=== PATIENT | female | born 1960 | race Caucasian/White ===

== ENCOUNTER → 2023-09-05 06:28 | Day surgery (SDC) | payer OTHER, SELFPAY | LOC: GI 06:28 | PROVIDERS: ATTENDING PHYSICIAN Specialist | DX: R12 Heartburn (principal); K31.7 Polyp of stomach and duodenum; D13.2 Benign neoplasm of duodenum; K22.89 Other specified disease of esophagus | CPT/HCPCS: 43251; 43239; 88305 ==

== ENCOUNTER → 2023-09-13 06:32 | Day surgery (SDC) | payer OTHER, SELFPAY | LOC: GI 06:32 | PROVIDERS: ATTENDING PHYSICIAN Specialist | DX: D13.2 Benign neoplasm of duodenum (principal); K92.1 Melena; Z86.010 Personal history of colon polyps | CPT/HCPCS: 43251; 88305 ==

== ENCOUNTER → 2024-01-03 10:32 | Outpatient (REF) | payer OTHER, SELFPAY | LOC: WDC 10:32 | PROVIDERS: ATTENDING PHYSICIAN Nurse Practitioner Family; FAMILY PHYSICIAN Family Medicine | DX: Z12.31 Encounter for screening mammogram for malignant neoplasm of breast (principal) | CPT/HCPCS: 77063; 77067 ==

== ENCOUNTER 2024-03-13 06:17 | Day surgery (SDC) | payer OTHER, SELFPAY | END 2024-03-13 12:21 | disposition home or self-care (01) | LOC: GI 06:17 | PROVIDERS: ATTENDING PHYSICIAN Specialist | DX: K31.7 Polyp of stomach and duodenum (principal) | CPT/HCPCS: 43251; 88305 ==

== ENCOUNTER → 2024-10-16 09:32 | Outpatient (REF) | payer MEDICARE, SELFPAY | LOC: HWRAD 09:32 | PROVIDERS: ATTENDING PHYSICIAN Nurse Practitioner Family; FAMILY PHYSICIAN Family Medicine | DX: Z78.0 Asymptomatic menopausal state (principal) | CPT/HCPCS: 77080 ==

== ENCOUNTER → 2025-02-08 17:07 | Outpatient (REF) | payer MEDICARE, SELFPAY | LOC: WDC 17:07 | PROVIDERS: ATTENDING PHYSICIAN Family Medicine | DX: Z12.31 Encounter for screening mammogram for malignant neoplasm of breast (principal) | CPT/HCPCS: 77063; 77067 ==